=== PATIENT | female | born 1990 | race Caucasian/White ===

== ENCOUNTER 2018-04-21 18:57 | Emergency (ER) | payer SELFPAY ==
[2018-04-21] MEDS ORDERED: Ibuprofen 600 MG Tab PO ONE (19:40)
--- NOTE | 2018-04-21 19:40 | EDM.PDOC ---
ED HPI GENERAL MEDICAL PROBLEM - General Chief Complaint: Trauma Stated Complaint: [facility] Time Seen by Provider: 04/21/18 18:57 Source of Information: Reports: Patient, EMS, Family (Father (witness), mother ( not a witness)) History Limitations: Reports: No Limitations - History of Present Illness INITIAL COMMENTS - FREE TEXT/NARRATIVE: The patient states that she was on her horse, bradying, in [place], [place], when, according to both patient and her father, who witnessed the event, the patient was leaning forward, when her horse suddenly raised its head, striking the patient on the right side of her face, around 17:30 tonight. The patient was not wearing a helmet. There was no loss of consciousness, but the patient's father states that it looked like she was nearly about to pass out. The patient slid off her horse, walked over to the edge of the arena, and sat down. The patient complained of blurry vision, and may have had slurred speech. She developed nausea and emesis, at which point the parents decided to bring the patient to the ED. It appears that she was brought partly to the ED in her father's pickup truck, the remainder of the way per EMS. EMS stated that the patient did not have an altered mental status, and did not vomit, however, she did complain of right head pain and nausea. She was given 0.5 mg IV Dilaudid, 4 mg IV Zofran, and 100 mL NS. Here in the ED, the patient's vitals are found to be stable. The patient's PCP is Dr. Michael Eagle, in [place]. 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: Other (See Below) (Ovarian cyst) Psychiatric History: Reports: Anxiety, Depression - Past Surgical History HEENT Surgical History: Reports: Adenoidectomy, Oral Surgery (wisdom teeth extraction), Tonsillectomy GI Surgical History: Reports: Appendectomy Female Surgical History: Reports: Other (See Below) (Ovarian cystectomy) Social & Family History - Family History Family Medical History: Noncontributory - Tobacco Use Smoking Status *Q: Never Smoker - Caffeine Use Caffeine Use: Reports: Soda - Alcohol Use Alcohol Use History: Yes Alcohol Use Frequency: Socially - Recreational Drug Use Recreational Drug Use: No - Living Situation & Occupation Living situation: Reports: Single, with Family (2 kids) 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 ED EXAM, GENERAL - Physical Exam Exam: See Below Exam Limited By: No Limitations General Appearance: Alert, WD/WN, No Apparent Distress Eye Exam: Bilateral Eye: EOMI, Normal Inspection Ears: Normal External Exam, Normal Canal, Hearing Grossly Normal, Normal TMs Nose: Normal Inspection, Normal Mucosa, No Blood Throat/Mouth: Normal Inspection, Normal Lips, Normal Teeth, Normal Gums, Normal Oropharynx, Normal Voice, No Airway Compromise Head: Normocephalic, Other (Mild ecchymosis and swelling to the right forehead.) Neck: Normal Inspection, Supple, Non-Tender, Full Range of Motion Respiratory/Chest: No Respiratory Distress, Lungs Clear, Normal Breath Sounds, No Accessory Muscle Use Cardiovascular: Normal Peripheral Pulses, Regular Rate, Rhythm, No Edema, No Gallop, No JVD, No Murmur, No Rub Peripheral Pulses: 4+: Radial (L), Radial (R) GI/Abdominal: Normal Bowel Sounds, Soft, Non-Tender, No Organomegaly, No Distention, No Abnormal Bruit, No Mass (Female) Exam: Deferred Rectal (Female) Exam: Deferred Back Exam: Normal Inspection, Full Range of Motion, NT Extremities: Normal Inspection, Normal Range of Motion, No Pedal Edema, Normal Capillary Refill Neurological: Alert, Oriented, CN II-XII Intact, Normal Cognition (Able to provide complete history of injury. No perseveration of questions.), No Motor/ Sensory Deficits Psychiatric: Normal Affect Skin Exam: Warm, Dry, Intact, Normal Color, No Rash Course - Vital Signs Last Recorded V/S: Last Vital Signs Temp 37.3 C 04/21/18 18:57 Pulse 62 04/21/18 19:53 Resp 11 L 04/21/18 19:53 BP 112/74 04/21/18 19:53 Pulse Ox 100 04/21/18 19:53 - Orders/Labs/Meds Labs: Laboratory Tests 04/21/18 04/21/18 Range/Units 19:16 19:16 WBC 7.41 (3.98-10.04) K/mm3 RBC 4.35 (3.98-5.22) M/mm3 Hgb 12.4 (11.2-15.7) gm/L Hct 36.7 (34.1-44.9) % MCV 84.4 (79.4-94.8) fl MCH 28.5 (25.6-32.2) pg MCHC 33.8 (32.2-35.5) g/dl RDW Std Deviation 40.7 (36.4-46.3) fL Plt Count 243 (182-369) K/mm3 MPV 10.7 (9.4-12.3) fl Neutrophils % (Manual) 69 H (40-60) % Band Neutrophils % 0 (0-10) % Lymphocytes % (Manual) 28 (20-40) % Atypical Lymphs % 0 % Monocytes % (Manual) 3 (2-10) % Eosinophils % (Manual) 0 L (0.7-5.8) % Basophils % (Manual) 0 L (0.1-1.2) Platelet Estimate Adequate Plt Morphology Comment Normal Anisocytosis 1+ slight RBC Morph Comment Not Reportable Sodium 142 (136-145) mEq/L Potassium 3.8 (3.5-5.1) mEq/L Chloride 106 (98-107) mEq/L Carbon Dioxide 25 (21-32) mEq/L Anion Gap 14.8 (5-15) BUN 16 (7-18) mg/dL Creatinine 0.8 (0.55-1.02) mg/dL Est Cr Clr Drug Dosing 95.89 mL/min Estimated GFR (MDRD) > 60 (>60) mL/min BUN/Creatinine Ratio 20.0 H (14-18) Glucose 92 (74-106) mg/dL Calcium 8.9 (8.5-10.1) mg/dL Total Bilirubin 0.7 (0.2-1.0) mg/dL AST 17 (15-37) U/L ALT 24 (14-59) U/L Alkaline Phosphatase 65 (46-116) U/L Total Protein 7.0 (6.4-8.2) g/dl Albumin 4.1 (3.4-5.0) g/dl Globulin 2.9 gm/dL Albumin/Globulin Ratio 1.4 (1-2) Meds: Medications Discontinued Medications Generic Name Dose Route Start Last Admin Trade Name Carmen PRN Reason Stop Dose Admin Ibuprofen 600 mg 04/21/18 19:40 04/21/18 19:45 Motrin PO 04/21/18 19:41 600 mg ONETIME ONE Administration - Re-Assessments/Exams Free Text/Narrative Re-Assessment/Exam: 04/21/18 19:34 CT of the head without contrast is read by [facility] as: No hemorrhage, mass effect or midline shift. CT of the cervical spine without contrast is read by [facility] as: No acute findings. 04/21/18 19:33 The patient has a mild right-sided facial contusion, but, clinically, she does not have a concussion. I believe that she may safely be discharged home. I will recommend [id number] ibuprofen as needed for discomfort, along with cool packs. Departure - Departure Time of Disposition: 19:35 Disposition: Home, Self-Care 01 Condition: Good Clinical Impression: Facial contusion - Discharge Information *PRESCRIPTION DRUG MONITORING PROGRAM REVIEWED*: Not Applicable *COPY OF PRESCRIPTION DRUG MONITORING REPORT IN PATIENT LEAH: Not Applicable Instructions: Facial or Scalp Contusion, Contusion, [id number] Referrals: Michael Eagle MD [Ordering Only Provider] - Forms: ED Department Discharge Additional Instructions: You were seen in the emergency room after your face was struck by the head of your horse, nearly causing unconsciousness. Workup in the ER included a CT scan of your head and cervical spine, as well as blood work. The entire workup was unremarkable. No broken bones, and no brain injury was found. Based on your history, physical examination, and ER tests, you have suffered a facial contusion, but, happily, nothing worse. Take [id number] Tylenol or ibuprofen as needed for discomfort. An ice pack to the face may help minimize swelling. Follow-up with your PCP, Dr. Michael Eagle, as needed. If any other problems, please do not hesitate to return to the ER.
--- NOTE | 2018-04-22 08:06 | CT ---
Head CT Technique: Multiple axial sections through the brain were obtained. Intravenous contrast was not utilized. Comparison: No previous intracranial imaging. Findings: Ventricles along with basal cisterns and sulci over the convexities are within normal limits for the patient's age. No abnormal parenchymal densities are seen. No evidence of intracranial hemorrhage. No midline shift or mass effect is seen. Mild areas of mucosal thickening seen within the ethmoid and frontal sinuses. Old trauma is noted within the frontal bone with orthopedic hardware in place. No acute calvarial abnormality is seen. Impression: 1. Mild areas of mucosal thickening within the ethmoid and frontal sinuses. No air-fluid levels are seen. 2. 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 3. No acute intracranial abnormality is identified. Diagnostic code #2 I agree with preliminary report from [facility], finalized on 04/18/18, 10:25 PM Central Time
--- NOTE | 2018-04-22 08:14 | CT ---
CT cervical spine Technique: Multiple axial sections were obtained from above C1 inferiorly to the bottom of T1. Reconstructed sagittal and coronal images were reviewed. Findings: Vertebral body heights and disc spaces are maintained. Posterior skull base is intact. Vertebral bodies and posterior arches are intact with no fracture being seen. No bony central or bony neural foraminal stenosis is seen. No abnormal subluxation is seen on the reconstructed sagittal images. Scoliosis is noted. Impression: 1. Scoliosis. Nothing acute is seen on CT study of the cervical spine. Diagnostic code #2 I agree with preliminary report issued by [facility] ([facility] preliminary report dictated on 04/21/18, 20:21 PM Central Time)
== END 2018-04-21 19:53 | disposition home or self-care (01) ==
LOC: JD.ED 18:57
DX: S00.83XA Contusion of other part of head, initial encounter (principal); F41.9 Anxiety disorder, unspecified; F32.9 Major depressive disorder, single episode, unspecified; Z79.899 Other long term (current) drug therapy; V80.010A Animal-rider injured by fall from or being thrown from horse in noncollision accident, initial encounter
CPT/HCPCS: 36415; 70450; 72125; 80053; 85007; 85027; 99285; A9270; 99284